=== PATIENT | female | born 1960 | race Caucasian/White ===

== ENCOUNTER → 2024-07-25 | Outpatient (CLI) | payer MEDICARE ==
[2024-07-25 10:20] LABS: Basophils # (A) 0.06 X 10*3/uL (0.00-0.10); Basophils % (A) 0.8 %; Eosinophils # (A) 0.25 X 10*3/uL (0.04-0.35); Eosinophils % (A) 3.2 %; HCT 49.2 % (37.2-46.3); HGB 16.2 g/dL (12.0-15.0); Lymphocytes % (A) 30.3 %; MCH 32.1 pg (27.0-32.0); MCHC 32.9 g/dL (32.0-37.0); MCV 97.4 FL (80.0-97.0); Mean Platelet Volume 10.4 FL (9.5-12.2); Monocytes # (A) 0.69 X 10*3/uL (0.20-1.00); Monocytes % (A) 8.7 %; NRBC Per 100 WBC 0 X 10*3/uL (0.00-0.01); Neutrophils # (A) 4.49 X 10*3/uL (1.80-7.70); Neutrophils % (A) 56.7 %; Platelet Count 327 X 10*3/uL (140-440); RBC 5.05 X 10*6/uL (4.10-5.20); RDW 13.2 % (11.5-14.5); WBC 7.91 X 10*3/uL (4.50-10.00)
[2024-07-25 11:34] LABS: ALT 18 U/L (8-44); AST 20 U/L (13-35); Albumin 4.2 g/dL (3.8-4.9); Albumin/Globulin Ratio 1.68 Ratio (1.60-3.17); Alkaline Phosphatase 105 U/L (41-126); BUN/Creat Ratio 21.12 Ratio (12.00-20.00); Blood Urea Nitrogen 16.9 mg/dL (9.0-27.0); Calcium 9.7 mg/dL (8.7-10.3); Carbon Dioxide 27.7 mmol/L (21.6-31.8); Chloride 106 mmol/L (96-109); Chol/HDL Ratio 2.66 Ratio; Globulin 2.5 g/dL (1.6-3.3); Glucose 101 mg/dL (70-110); LDL Cholesterol,Calculated 108.6 mg/dL (0.0-131.0); Potassium 4.4 mmol/L (3.5-5.5); Sodium 144 mmol/L (135-145); Total Bilirubin 0.4 mg/dL (0.3-1.2); Total Protein 6.7 g/dL (6.2-8.2); VLDL Calculation 19.24 mg/dL (5.00-40.00)
== END | disposition home or self-care (01) ==
LOC: LABWHC1 07:50
PROVIDERS: ATTEND Physician Assistant
DX: Z13.0 Encounter for screening for diseases of the blood and blood-forming organs and certain disorders involving the immune mechanism (principal); I10 Essential (primary) hypertension; E78.5 Hyperlipidemia, unspecified
CPT/HCPCS: 36415; 80053; 80061; 85025